=== PATIENT | male | born 1970 | race Caucasian/White ===

== ENCOUNTER 2017-01-09 02:30 | Inpatient (IN) | payer OTHER ==
[2017-01-09 02:35] VITALS: BP 145/80; PULSE 90; RESP 16; TEMP 97.9; O2SAT 97
[2017-01-09] MEDS ORDERED: SODIUM CHLOR 0.9% 1000 ML INJ 1,000 ML IV ONE (02:45)
--- NOTE | 2017-01-09 02:51 | PD ---
HPI Chief Complaint: psychiatric evaluation Time Seen by Provider: 02:47 Travel History International Travel<30 days: No Contact w/Intl Traveler<30days: No History of Present Illness HPI Patient comes in by EMS complaining of suicidal thoughts. Patient states he was tried to kill himself for a long time ago. Patient reports he is been smoking weed that he he believes may have been laced with unknown substance. Patient denies any chest pain, shortness of breath, fevers, nausea, vomiting, or headache. Per EMS patient states he is also smoking crack the past several days as well. Patient's thoughts and speech are all over the place thus limiting H&P. PFSH Past Medical History Asthma: Yes Depression: Yes Cardiovascular Problems: Yes Chest Pain: Yes Endocrine: No Genitourinary: Yes Headaches: Yes Musculoskeletal: Yes Neurologic: Yes Psychiatric: Yes Reproductive: No Respiratory: Yes Social History Tobacco Use: Yes (TWO PACKS A DAY) Substance Use: Yes (POT WHEN HE CAN GET IT) Allergies-Medications (Allergen,Severity, Reaction): Coded Allergies: No Known Allergies (Verified , 01/09/17) Reported Meds & Prescriptions Reported Meds & Active Scripts Active Reported Invega Sustenna Inj (Paliperidone Palmitate) 234 Mg/1.5 Ml Inj 234 Mg IM MONTHLY Review of Systems Except as stated in HPI: all other systems reviewed are Neg Physical Exam Narrative GENERAL: Well-developed, well nourished, in no acute distress, and non-ill appearing. SKIN: Warm and dry. HEAD: Atraumatic. Normocephalic. EYES: Pupils equal and round. EOMI. No scleral icterus. No injection or drainage. ENT: No nasal bleeding or discharge. Mucous membranes pink and moist. NECK: Trachea midline. Supple. No nuclear rigidity. CARDIOVASCULAR: Regular rate and rhythm. No murmur appreciated. RESPIRATORY: No accessory muscle use. No respiratory distress. Clear to auscultation. Breath sounds equal bilaterally. MUSCULOSKELETAL: No obvious deformities. No clubbing. No cyanosis. No edema. Full range of motion. NEUROLOGICAL: Awake and alert. No obvious cranial nerve deficits. Motor grossly within normal limits. Rambling speech. PSYCHIATRIC: Flight of ideas. Data Data Last Documented VS Vital Signs Date Time Temp Pulse Resp B/P Pulse Ox O2 Delivery O2 Flow Rate FiO2 01/09/17 02:35 97.9 90 16 145/80 97 Orders Complete Blood Count With Diff (01/09/17 02:35) Comprehensive Metabolic Panel (01/09/17 02:35) Psych Screen (01/09/17 02:35) Drug Screen, Random Urine (01/09/17 02:35) Alcohol (Ethanol) (01/09/17 02:35) Salicylates (Aspirin) (01/09/17 02:35) Tylenol (Acetaminophen) (01/09/17 02:35) Iv Access Insert/Monitor (01/09/17 02:43) Sodium Chlor 0.9% 1000 Ml Inj (Ns 1000 M (01/09/17 02:45) Labs Laboratory Tests Test 01/09/17 01/09/17 02:45 03:00 White Blood Count 7.8 TH/MM3 Red Blood Count 4.85 MIL/MM3 Hemoglobin 15.4 GM/DL Hematocrit 45.5 % Mean Corpuscular Volume 93.9 FL Mean Corpuscular Hemoglobin 31.8 PG Mean Corpuscular Hemoglobin 33.9 % Concent Red Cell Distribution Width 13.7 % Platelet Count 163 TH/MM3 Mean Platelet Volume 9.2 FL Neutrophils (%) (Auto) 67.6 % Lymphocytes (%) (Auto) 21.3 % Monocytes (%) (Auto) 8.1 % Eosinophils (%) (Auto) 2.0 % Basophils (%) (Auto) 1.0 % Neutrophils # (Auto) 5.3 TH/MM3 Lymphocytes # (Auto) 1.7 TH/MM3 Monocytes # (Auto) 0.6 TH/MM3 Eosinophils # (Auto) 0.2 TH/MM3 Basophils # (Auto) 0.1 TH/MM3 CBC Comment DIFF FINAL Differential Comment Sodium Level 139 MEQ/L Potassium Level 4.3 MEQ/L Chloride Level 102 MEQ/L Carbon Dioxide Level 28.0 MEQ/L Anion Gap 9 MEQ/L Blood Urea Nitrogen 10 MG/DL Creatinine 1.13 MG/DL Estimat Glomerular Filtration 70 ML/MIN Rate Random Glucose 92 MG/DL Calcium Level 9.3 MG/DL Total Bilirubin 0.8 MG/DL Aspartate Amino Transf 22 U/L (AST/SGOT) Alanine Aminotransferase 30 U/L (ALT/SGPT) Alkaline Phosphatase 81 U/L Total Protein 7.8 GM/DL Albumin 4.4 GM/DL Salicylates Level 4.4 MG/DL Acetaminophen Level LESS THAN 2.0 MCG/ML Ethyl Alcohol Level 5 MG/DL Urine Opiates Screen NEG Urine Barbiturates Screen NEG Urine Amphetamines Screen NEG Urine Benzodiazepines Screen NEG Urine Cocaine Screen NEG Urine Cannabinoids Screen POS MDM Medical Decision Making Medical Screen Exam Complete: Yes Emergency Medical Condition: Yes Differential Diagnosis Homicidal, suicidal, drug-induced psychosis, drug abuse, bipolar, schizoaffective, other Narrative Course Due to patient's suicidal ideations and reported previous suicide attempt. Patient was placed under Maloney act until patient can be evaluated by psych. Patient was seen and examined. Labs were obtained and reviewed. Patient medically cleared for further treatment and evaluation by psych. Final disposition per psych. Diagnosis Primary Impression: Suicidal thoughts Condition: Stable Alfredo Thao Jan 09, 2017 02:51
[2017-01-09 03:02] LABS: AUTOMATED NEUTROPHIL # 5.3 TH/MM3 (1.8-7.7); BASOPHIL # 0.1 TH/MM3 (0-0.2); EOSINOPHIL # 0.2 TH/MM3 (0-0.4); HEMATOCRIT 45.5 % (39.0-51.0); HEMO FLAGS DIFF FINAL; LYMPH % 21.3 % (9.0-44.0); LYMPHOCYTE # 1.7 TH/MM3 (1.0-4.8); MEAN CELL VOLUME 93.9 FL (80.0-100.0); MEAN CORPUSCULAR HEMOGLOBIN 31.8 PG (27.0-34.0); MEAN CORPUSCULAR HGB CONC 33.9 % (32.0-36.0); MONO % 8.1 % (0.0-8.0); NEUT % 67.6 % (16.0-70.0); PLATELET COUNT 163 TH/MM3 (150-450); RED BLOOD COUNT 4.85 MIL/MM3 (4.50-5.90); RED CELL DISTRIBUTION WIDTH 13.7 % (11.6-17.2); WHITE BLOOD COUNT 7.8 TH/MM3 (4.0-11.0)
[2017-01-09] MEDS ORDERED: PALI234P IM (03:08)
[2017-01-09 03:17] LABS: ALT (GPT) 30 U/L (12-78); ANION GAP 9 MEQ/L (5-15); AST (GOT) 22 U/L (15-37); BLOOD UREA NITROGEN 10 MG/DL (7-18); CHLORIDE 102 MEQ/L (98-107); GLOMERULAR FILTRATION RATE 70 ML/MIN (>89); POTASSIUM 4.3 MEQ/L (3.5-5.1); SODIUM (NA) 139 MEQ/L (136-145)
[2017-01-09 03:19] LABS: ALKALINE PHOSPHATASE 81 U/L (45-117); TOTAL BILIRUBIN ADULT 0.8 MG/DL (0.2-1.0)
[2017-01-09 03:19] LABS: AMPHETAMINE, URINE NEG (NEG); BARBITURATES, URINE NEG (NEG); COCAINE, URINE NEG (NEG)
[2017-01-09 03:20] LABS: ACETAMINOPHEN LESS THAN 2.0 MCG/ML (10.0-30.0)
[2017-01-09 06:28] VITALS: BP 170/65; PULSE 89; RESP 18; TEMP 97.3; O2SAT 96
--- NOTE | 2017-01-09 10:28 | PD ---
History of Present Illness Chief Complaint: Psychiatric Symptoms Time Seen by Provider: 10:15 Travel History International Travel<30 Days: No Contact w/Intl Traveler<30days: No Known affected area: No Legal Status Legal Status: Maloney Act Maloney Act Signed By: ROULA ALEX [id number] History of Present Illness: History of Present Illness Patient is a 46 year old male with history of schizoaffective disorder who presents to [facility] under a BA. As per the report the patient reported suicidal ideation. As per ED documentation he reported he is been smoking weed that he he believes may have been laced with unknown substance as well as also smoking crack the past several days. Patient is seen in J pod. Awake, alert and engaging. He is dressed in hospital attire and is disheveled with strong body odor. He is not oriented to time, knows it is December but not oriented to date. He rambles and required redirection. Unable to focus and answer questions as he gets easily distracted. He reports he came to the hospital because he was having trouble with his heart and anxiety and that he has not slept in 48 hours. He then goes on to tell me about his knee and his back. He denies that he is hearing voices at this time.Denies suicidal or homicidal ideation as well He further reports that he is afraid of staying in his apartment because there is also someone else in that apartment that is using crack. I called his [facility] briefcase sewer Sondra Gabriel who states he is being followed by [facility] and did receive an injection of Invega Sustenna yesterday. He was recently released from the FACT team and has been referred top outpatient treatment. He has been diagnosed with schizoaffective disorder. She also informs me that he did in fact tell her that he smoked crack last week which may be a contributing factor to current presentation. . PFSH Past Medical History Asthma: Yes Depression: Yes Cardiovascular Problems: Yes (MITRAL VALVE PROLAPSE) Chest Pain: Yes COPD: Yes Endocrine: No Genitourinary: Yes Headaches: Yes Musculoskeletal: Yes Neurologic: Yes Psychiatric: Yes Reproductive: No Respiratory: Yes Schizophrenia: Yes Tetanus Vaccination: Unknown Influenza Vaccination: No Past Surgical History Other Surgery: Yes (FACIAL SURGERY 1995) Psychiatric History Psychiatric History Hx Psychiatric Treatment: LAST [facility] VISIT 10/16/08 FOR DEPRESSIVE D/O NOS. HX OF SCHIZOPHRENIA AND DEPRESSION. Recently discharged from FACT team. History of Inpatient Treatment: Yes Guns or firearms in home: No Social History As per record he is a single male who lives alone. On disability Hx Alcohol Use: No Hx Tobacco Use: Yes (TWO PACKS A DAY) Hx Substance Use: Yes Substance Use Type: Alcohol, Crack, Marijuana, Other Hx of Substance Use Treatment: No Family Psychiatric History Unable to obtain at this time. Allergies-Medications (Allergen,Severity, Reaction): Coded Allergies: No Known Allergies (Verified , 01/09/17) Reported Meds & Prescriptions Reported Meds & Active Scripts Active Reported Invega Sustenna Inj (Paliperidone Palmitate) 234 Mg/1.5 Ml Inj 234 Mg IM MONTHLY Review of Systems ROS Limitations: Psychotic Exam Alert: Yes [place]: Person (ox4) Mood: Anxious Affect: Labile Speech: Clear, Flight of Ideas Eye Contact: Normal Memory Intact: Comment (not formally tetsted) Delusions: No Suicidal: Ideation (denmeis any) Homicidal: Ideation (denies any) Insight/Judgement Poor. Impaired. MDM Medical Decision Making Medical Record Reviewed: Yes Assessment/Plan 46 year old male with hx of schizoaffective disorder who is under a BA for reporting suicidal ideation. Patient at this time reports he has not slept in 48 hours and that he smoked marijuana and crack. At this time he presents with fpsychotic symptoms and is at risk of harm to self . He will be admitted for further observation, to maintain safety and to stabilize current symptoms. Orders Complete Blood Count With Diff (01/09/17 02:35) Comprehensive Metabolic Panel (01/09/17 02:35) Psych Screen (01/09/17 02:35) Drug Screen, Random Urine (01/09/17 02:35) Alcohol (Ethanol) (01/09/17 02:35) Salicylates (Aspirin) (01/09/17 02:35) Tylenol (Acetaminophen) (01/09/17 02:35) Iv Access Insert/Monitor (01/09/17 02:43) Sodium Chlor 0.9% 1000 Ml Inj (Ns 1000 M (01/09/17 02:45) Diet Regular Basic (01/09/17 Breakfast) Diet Regular Basic (01/09/17 Lunch) Results Vital Signs Date Time Temp Pulse Resp B/P Pulse Ox O2 Delivery O2 Flow Rate FiO2 01/09/17 06:28 97.3 89 18 170/65 96 Room Air 01/09/17 02:35 97.9 90 16 145/80 97 Laboratory Tests Test 01/09/17 01/09/17 02:45 03:00 White Blood Count 7.8 Red Blood Count 4.85 Hemoglobin 15.4 Hematocrit 45.5 Mean Corpuscular Volume 93.9 Mean Corpuscular Hemoglobin 31.8 Mean Corpuscular Hemoglobin 33.9 Concent Red Cell Distribution Width 13.7 Platelet Count 163 Mean Platelet Volume 9.2 Neutrophils (%) (Auto) 67.6 Lymphocytes (%) (Auto) 21.3 Monocytes (%) (Auto) 8.1 Eosinophils (%) (Auto) 2.0 Basophils (%) (Auto) 1.0 Neutrophils # (Auto) 5.3 Lymphocytes # (Auto) 1.7 Monocytes # (Auto) 0.6 Eosinophils # (Auto) 0.2 Basophils # (Auto) 0.1 CBC Comment DIFF FINAL Differential Comment Sodium Level 139 Potassium Level 4.3 Chloride Level 102 Carbon Dioxide Level 28.0 Anion Gap 9 Blood Urea Nitrogen 10 Creatinine 1.13 Estimat Glomerular Filtration 70 Rate Random Glucose 92 Calcium Level 9.3 Total Bilirubin 0.8 Aspartate Amino Transf 22 (AST/SGOT) Alanine Aminotransferase 30 (ALT/SGPT) Alkaline Phosphatase 81 Total Protein 7.8 Albumin 4.4 Salicylates Level 4.4 Acetaminophen Level LESS THAN 2.0 Ethyl Alcohol Level 5 Urine Opiates Screen NEG Urine Barbiturates Screen NEG Urine Amphetamines Screen NEG Urine Benzodiazepines Screen NEG Urine Cocaine Screen NEG Urine Cannabinoids Screen POS Diagnosis Primary Impression: Schizoaffective disorder Additional Impression: Substance or medication-induced psychotic disorder Ruled Out: Suicidal thoughts Admitting Information Admitting Physician Requests: Admit (Dr. Salamanca) Condition: Stable Problem Qualifiers Primary Impression: Schizoaffective disorder Qualified Code: F25.0 - Schizoaffective disorder, bipolar type Additional Impression: Yamileth Christopher Jan 09, 2017 10:28
[2017-01-09] MEDS ORDERED: ACETAMINOPHEN 325 MG TAB PO PRN (11:15)
[2017-01-09] MEDS ORDERED: MAGNESIUM HYDROXIDE SUSP 30 ML CUP PO PRN (11:15)
[2017-01-09] MEDS ORDERED: ALUMINUM/MAGNESIUM/SIMETH 30 ML CUP PO PRN (11:15)
[2017-01-09] MEDS: NICOTINE 21 MG/24 HR PATCH T-DERMAL SCH (12:40)
[2017-01-09] MEDS ORDERED: LORazepam 2 MG TAB PO ONE (13:15)
[2017-01-09 14:48] VITALS: BP 127/70; PULSE 78; RESP 18; TEMP 97.5; O2SAT 95
[2017-01-09 15:30] VITALS: BP_SYST 117; BP_SYST 125; BP_DIAS 58; BP_DIAS 61; PULSE 72; PULSE 92; RESP 19; TEMP 98.9; O2SAT 95
[2017-01-10 05:35] VITALS: BP 106/66; PULSE 93; RESP 18; TEMP 97.9; O2SAT 96
[2017-01-10 08:06] LABS: ANION GAP 6 MEQ/L (5-15); BICARBONATE 30.3 MEQ/L (21.0-32.0); BLOOD UREA NITROGEN 13 MG/DL (7-18); CHLORIDE 104 MEQ/L (98-107); GLOMERULAR FILTRATION RATE 76 ML/MIN (>89); HDL CHOLESTEROL 79.6 MG/DL (40.0-60.0); LDL CHOLESTEROL 48 MG/DL (0-99); POTASSIUM 4.1 MEQ/L (3.5-5.1); SODIUM (NA) 140 MEQ/L (136-145)
[2017-01-10] MEDS: NICOTINE 21 MG/24 HR PATCH T-DERMAL SCH (09:00)
[2017-01-10] MEDS: REMOVE OLD PATCH T-DERMAL SCH (09:00)
--- NOTE | 2017-01-10 12:56 | HHI.HP ---
Provisional Diagnosis Admission Date Jan 09, 2017 at 11:07 [place] I. Schizoaffective disorder, bipolar type, depressed Certification of Person's Competence To Provide Express and Informed Consent I have personally examined Trent Huerta , a person being served at [facility] on, Jan 10, 2017 12:48. Express and informed consent means consent voluntarily given in writing, by a competent person, after sufficient explanation and disclosure of the subject matter involved to enable the person to make a knowing and willful decision without any element of force, fraud, deceit, duress, or other form of constraint or coercion. This person is 18 years of age or older, is not now known to be incompetent to consent to treatment with a guardian advocate, and does not have a health care surrogate or proxy currently making medical treatment decisions. I have found this person to be one of the following: [x Competent to provide express and informed consent, as defined above, for voluntary admission to this facility and is competent to provide express and informed consent for treatment. He/she has the consistent capacity to make well reasoned, willful, and knowing decisions concerning his or her medical or mental health treatment. The person fully and consistently understands the purpose of the admission for examination/placement and is fully capable of personally exercising all rights [place] [] Incompetent to provide express and informed consent to voluntary admission, and this is incompetent to provide express and informed consent to treatment. The person must be transferred to involuntary status and a petition for a guardian advocate filed with the Circuit Court. [] Refusing to provide express and informed consent to voluntary admission but is competent to provide express and informed consent for treatment. The person must be discharged or transferred to involuntary status. Form shall be completed within 24 hours of a person's arrival at the receiving facility and filed in the clinical record of each person: 1. Admitted on a voluntary basis 2. Permitted to provide express and informed consent to his/her own treatment 3. Allowed to transfer from involuntary to voluntary status 4. Prior to permitting a person to consent to his or her own treatment after having been previously found incompetent to consent to treatment. History of Present Illness Capacity: Has Capacity HPI This is a 46-year-old male with a long history of psychotic illness, recently discharged by the fact team but continues to be treated by Daniel Rajan. He has been variously diagnosed with schizophrenia and bipolar disorder as well as schizoaffective disorder. The last diagnosis being the most recent. The patient reportedly came in under a Maloney act for reporting suicidal ideation. At this time he is not reporting suicidality but he does admit to smoking crack and marijuana laced with some unknown substance. This has exacerbated his underlying mental condition and he is both depressed as well as demonstrating looseness of associations. He is afraid to return to his home, where his roommate reportedly continues to smoke crack. The patient receives in Musa cyst and a as a monthly injection and has received this injection at the last scheduled appointment. However, his looseness of association is an indicator of his disorganized thinking and his current inability to care for himself. Review of Systems ROS Limitations: Clinical Condition Constitutional: COMPLAINS OF: Diaphoretic episodes Endocrine: COMPLAINS OF: Heat/cold intolerance Respiratory: COMPLAINS OF: Cough Cardiovascular: COMPLAINS OF: Chest pain Gastrointestinal: COMPLAINS OF: Abdominal pain Musculoskeletal: COMPLAINS OF: Joint pain Neurologic: COMPLAINS OF: Headache Psychiatric: COMPLAINS OF: Confusion Past Psych History Psychological trauma history Denies. Violence risk - others (6 mos) Minimal. Violence risk - self (6 mos) Moderate to severe. Patient vacillates between suicidal and not being suicidal but continues to demonstrate loose association and disorganized thinking. Substance Abuse History Drugs/Alcohol past 12 months Over the last several days has been using crack cocaine and marijuana. Past Family Social History Coded Allergies: No Known Allergies (Verified , 01/09/17) Reported Medications Paliperidone Palmitate Inj (Invega Sustenna Inj)234 Mg/1.5 Ml [id number] Mg IM MONTHLY #1 VIAL Ref 0 01/09/17 Current Medications Medications (Trade) Dose Ordered Sig/Glenys Route Start Time Stop Time Status Last Admin (Tylenol) 650 mg Q4H PRN PO 01/09/17 11:15 (Milk Of Magnesia Liq) 30 ml DAILY PRN PO 01/09/17 11:15 (Mag-Al Plus Susp Liq) 30 ml Q6H PRN PO 01/09/17 11:15 (Habitrol 21 Mg Patch.24 Hr) 1 patch DAILY T-DERMAL 01/09/17 12:30 01/10/17 09:00 Miscellaneous Information 1 DAILY T-DERMAL 01/10/17 09:00 Family History Patient does have a family history of schizophrenia. Social History Patient is unemployed and lives on Social Security disability income. Chronic history of mental illness. Not . Has no children. Recently discharged from the fact team. Continues to be followed by Daniel Rajan. Patient's Strengths (min. 2) Verbal and resilience. Physical Exam GENERAL: SKIN: Warm and dry. HEAD: Normocephalic. EYES: No scleral icterus. No injection or drainage. NECK: Supple, trachea midline. No JVD or lymphadenopathy. CARDIOVASCULAR: Regular rate and rhythm without murmurs, gallops, or rubs. RESPIRATORY: Breath sounds equal bilaterally. No accessory muscle use. GASTROINTESTINAL: Abdomen soft, non-tender, nondistended. MUSCULOSKELETAL: No cyanosis, or edema. BACK: Nontender without obvious deformity. No CVA tenderness. Vital Signs Vital Signs Date Time Temp Pulse Resp B/P Pulse Ox O2 Delivery O2 Flow Rate FiO2 01/10/17 05:35 97.9 93 18 106/66 96 01/09/17 06:28 Room Air Mental Status Examination Speech: Unremarkable Orientation: x3 Memory: Unremarkable Thought Process: Organized, Loose Association Thought Content: Bizarre thinking Hallucination Type: None Attention and Concentration: Easily Distracted Suicidal Ideation: Yes Previous Suicide Attempts: No Homicidal Ideation: No Previous Homicide Attempts: No Insight: Fair, Poor Judgement: Unrealistic Affect: Anxious Affect if Inappropriate: Blunt Mood: Appropriate Motor Activity: Normal gait Assessment & Plan Problem List: (1) Schizoaffective disorder ICD Code: F25.9 Assessment & Plan Estimated LOS: 5-7 days patient with a chronic history of schizoaffective disorder who has recently been smoking crack cocaine and marijuana laced with some unknown substance. Currently presents in a decompensated state including bizarre and paranoid thinking as well as loose associations. Unable to care for himself and describes suicidal thinking. This physician plans to observe and evaluate the patient over the next 24 hours. Possibly augment his current Invega Sustenna with oral antipsychotic medication. It is anticipated he will be in the hospital for several days and will certainly receive a toxicology screen. Problem Qualifiers (1) Schizoaffective disorder: Qualified Code: F25.0 - Schizoaffective disorder, bipolar type Julian Alcantar MD Jan 10, 2017 12:56
[2017-01-10 17:30] VITALS: BP 125/59; PULSE 76; RESP 19; TEMP 98; O2SAT 97
[2017-01-11 05:44] VITALS: BP 118/58; PULSE 61; RESP 16; TEMP 98.5
[2017-01-11] MEDS: REMOVE OLD PATCH T-DERMAL SCH (09:00)
[2017-01-11] MEDS: NICOTINE 21 MG/24 HR PATCH T-DERMAL SCH (09:00)
[2017-01-11 09:28] LABS: HEMOGLOBIN A1b 0.8 %; HEMOGLOBIN F 0.8 %; HEMOGLOBIN P3 3.5 %
--- NOTE | 2017-01-11 13:32 | HHI.PYPN ---
Subjective Remarks Pt seen and discussed with staff. Staff reports that yesterday pt was easily agitated and began yelling at therapist on unit. Today he has been calmer and less labile. He states that his mood is "all whoo-whoo" and he asks for benzodiazepines for sleep despite sleeping well last night. "I can tell you that I'm allergic or immune to everything for sleep except benzos". He admits to relapse and attributes some of mood symptoms to "coming down". Discussed expiration of BA and options and pt was agreeable to sign in voluntary. "I know I'm a mess." He denies SI/HI. Objective Alert: Yes [place]: Person, Place, Date, Situation Mood: Other (mildly euphoric) Affect: Labile Memory Intact: Comment (no impairments) Hallucinations: Other (none) Delusions: No Delusion Type: Other (none) Suicidal: Ideation (denies) Homicidal: Ideation (denies) Insight/Judgement poor Vitals/IOs Vital Signs Date Time Temp Pulse Resp B/P Pulse Ox O2 Delivery O2 Flow Rate FiO2 01/11/17 05:44 98.5 61 16 118/58 01/10/17 17:30 97 01/09/17 06:28 Room Air Assessment & Plan Problem List: (1) Schizoaffective disorder ICD Code: F25.9 Assessment & Plan Continue current tx plan. Pt seems to be clearing as substances clear system. Estimated LOS: days Justification for Cont. Inpt. impairments in social functioning, monitoring for safety Problem Qualifiers (1) Schizoaffective disorder: Qualified Code: F25.0 - Schizoaffective disorder, bipolar type Mary Solis MD Jan 11, 2017 13:32
[2017-01-11 17:14] VITALS: BP 115/72; PULSE 79; RESP 18; TEMP 97.7; O2SAT 100
[2017-01-12 05:57] VITALS: BP 118/65; PULSE 70; RESP 18; TEMP 98.3; O2SAT 96
[2017-01-12] MEDS: REMOVE OLD PATCH T-DERMAL SCH (09:00)
[2017-01-12] MEDS: NICOTINE 21 MG/24 HR PATCH T-DERMAL SCH (09:00)
--- NOTE | 2017-01-12 12:28 | HHI.DS ---
Psychiatry Discharge Summary Inpatient Psychiatric care?: Yes Advance Directive: No Reason Not Provided: Due to Patient Condition Mental Health AdvanceDirective: No Health Care Proxy: No Admission Admission Date Jan 09, 2017 at 11:07 Admission Diagnosis: (1) Schizoaffective disorder ICD Code: F25.9 Brief History This is a 46-year-old male with a long history of psychotic illness, recently discharged by the fact team but continues to be treated by Daniel Rajan. He has been variously diagnosed with schizophrenia and bipolar disorder as well as schizoaffective disorder. The last diagnosis being the most recent. The patient reportedly came in under a Maloney act for reporting suicidal ideation. At this time he is not reporting suicidality but he does admit to smoking crack and marijuana laced with some unknown substance. This has exacerbated his underlying mental condition and he is both depressed as well as demonstrating looseness of associations. He is afraid to return to his home, where his roommate reportedly continues to smoke crack. The patient receives in Huddler cyst and a as a monthly injection and has received this injection at the last scheduled appointment. However, his looseness of association is an indicator of his disorganized thinking and his current inability to care for himself. Tobacco Use In Past 30 Days: 5 or More Cigarettes/Day Alcohol Use: 2-3 Times Per Week Hospital Course Patient was admitted to a locked, inpatient psychiatric unit. Appropriate precautions were in place throughout patient's hospital stay. Patient was seen and examined daily on the unit by psychiatry and also visited by counselor. Patient had received Invega Sustenna just prior to admission, and no psychotropics were started during this hospital stay. Patient had no side effects from the Invega Sustenna. Patient had improvement in his presenting psychiatric symptomatology, which was likely exacerbated by recent substance use. He had resolution of his psychosis. There was no evidence of any suicidality or homicidality on the inpatient unit. On the day of discharge: Patient seen and examined. Chart reviewed. Case discussed in treatment team with nurse, counselor and occupational therapist. Per nursing staff, patient has been no behavioral problem. Per occupational therapist, patient has been appropriate in groups. On my examination today, the patient is calm and pleasant. He is requesting discharge from the inpatient psychiatric unit today. There is no evidence of ongoing psychosis, and the patient denies audiovisual hallucinations. I can elicit no delusional beliefs at this time. He denies any suicidal or homicidal ideation. Mood is stable and there are no depressive or hypomanic/manic symptoms. He does admit to use of methamphetamines, crack cocaine and cannabis prior to admission. He plans to resume 12 step meetings and get a new sponsor on discharge to manage his substance use. He is knowledgeable about his psychotropic medications and plans to remain adherent with these and follow-up with outpatient mental health providers as well. Denies side effects from medications. No physical complaints. He is attending to his basic needs. Weighing the acute, chronic, and protective factors and based on the available evidence, I audio visual arts director to a reasonable degree of medical certainty that the patient is at low imminent risk of harm to self or others from a mental illness as defined and Maloney act and his level of function is adequate for outpatient care. Consequently, the patient does not meet criteria for involuntary psychiatric hospitalization at this time. I have offered to retain the patient on the inpatient unit for additional observation, but he has declined. Given that the patient is requesting discharge from the inpatient psychiatric unit today and given that I have no basis to retain him involuntarily at this time, I will arrange for his discharge today with psychiatric follow-up as arranged by counselor. Patient is also to follow-up with primary care. I counseled the patient to abstain from substances of abuse. I also counseled the patient regarding warning signs for need to return to the psychiatric emergency room as part of general safety plan. Results Blood Pressure 118 / 65 Vital Signs Date Time Temp Pulse Resp B/P Pulse Ox O2 Delivery O2 Flow Rate FiO2 01/12/17 05:57 98.3 70 18 118/65 96 01/09/17 06:28 Room Air Laboratory Tests Test 01/10/17 07:26 Estimat Glomerular Filtration 76 ML/MIN (>89) Rate HDL Cholesterol 79.6 MG/DL (40.0-60.0) Laboratory Results Test 01/10/17 07:26 Hemoglobin A1c 5.3 % (4.3-6.0) Triglycerides Level 65 MG/DL (42-150) Cholesterol Level 141 MG/DL (120-200) LDL Cholesterol 48 MG/DL (0-99) HDL Cholesterol 79.6 MG/DL (40.0-60.0) Summary of Procedures None done Imaging None done Pending results at discharge: No Medications # of Antipsychotic meds at D/C: 1 Approp Antipsych med options 1 - Minimum of three failed multiple trials of monotherapy. 2 - Documented plan to taper to monotherapy due to previous use of multiple meds OR cross-taper in progress at D/C. 3 - Documentation of augmentation of Clozapine. 4 - Justification other than those listed in allowable values 1-3, document here : Discharge Discharge Date: Jan 12, 2017 Discharge Diagnosis: (1) Schizoaffective disorder Diagnosis: Principal (stable) ICD Code: F25.9 (2) Polysubstance abuse Diagnosis: Secondary (counseled to quit) ICD Code: F19.10 GAF on discharge is 55 Mental Status Exam at Disch Patient is casually dressed. He is well groomed. He is awake and alert and oriented 3. No evidence of delirium. No abnormal motor movements noted. Speech is within normal limits for rate, tone and volume. Language and fund of knowledge seem at least average. Mood is good and affect is full and reactive. Thought process linear. No loosening of associations. No evident delusions. Denies audiovisual hallucinations. Denies suicidal or homicidal ideation. Insight and judgment are fair. Pt Condition on Discharge: Stable Discharge Disposition: Discharge Home Discharge Instructions Diet Instructions: As Tolerated, No Restrictions Activities you can perform: Weight Bearing as Meaghan Scheduled Appointment: [facility] Appointment Date: Jan 16, 2017 Appointment Time: 7:30am Continued Medications: Paliperidone Palmitate Inj (Invega Sustenna Inj) 234 Mg/1.5 Ml Inj 234 MG IM MONTHLY Schizophrenia #1 Ref 0 VIAL Discharge Time > 30 minutes Discharge/Advance Care Plan Health Problems: (1) Schizoaffective disorder Goals to promote your health * To prevent worsening of your condition and complications * To maintain your health at the optimal level Directions to meet your goals Take your medications as prescribed Follow your dietary instruction Follow activity as directed Keep your appointments as scheduled Take your immunizations and boosters as scheduled If your symptoms worsen call your PCP, if no PCP go to Urgent Care Center or Emergency Room For 18/05 questions related to your inpatient stay or results of tests pending at discharge, please contact Dr. David Salamanca at Smoking is Dangerous to Your Health. Avoid second hand smoking Problem Qualifiers (1) Schizoaffective disorder: Qualified Code: F25.0 - Schizoaffective disorder, bipolar type David Salamanca MD Jan 12, 2017 12:28
== END 2017-01-12 14:30 | disposition home or self-care (01) | DRG 885 ==
LOC: NEPA 02:30 → NEDA 11:07 → H270 13:40
PROVIDERS: ADMIT Psychiatry & Neurology Psychiatry; ATTEND Psychiatry & Neurology Psychiatry
DX: F25.0 Schizoaffective disorder, bipolar type (principal); J44.9 Chronic obstructive pulmonary disease, unspecified; F17.210 Nicotine dependence, cigarettes, uncomplicated; F14.90 Cocaine use, unspecified, uncomplicated; J45.909 Unspecified asthma, uncomplicated; Z91.5 Personal history of self-harm; F12.90 Cannabis use, unspecified, uncomplicated; I34.1 Nonrheumatic mitral (valve) prolapse
CPT/HCPCS: 80048; 80053; 80061; 80307; 83036; 85025; 96360; J7030

== ENCOUNTER 2017-02-06 17:59 | Emergency (ER) | payer OTHER ==
[~2017-02-06] VITALS: Ht 190.5 cm; Wt 72.5 kg
[~2017-02-06 17:59] MED LIST: PALI234P IM
[2017-02-06 18:01] VITALS: BP 135/83; PULSE 86; RESP 20; TEMP 98.7; O2SAT 96
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
[2017-02-06 19:07] LABS: AUTOMATED NEUTROPHIL # 4.9 TH/MM3 (1.8-7.7); BASOPHIL # 0.1 TH/MM3 (0-0.2); BASOPHIL % 1.1 % (0.0-2.0); EOSINOPHIL # 0.2 TH/MM3 (0-0.4); EOSINOPHIL % 2.9 % (0.0-4.0); HEMATOCRIT 39.8 % (39.0-51.0); HEMO FLAGS DIFF FINAL; LYMPH % 21.7 % (9.0-44.0); LYMPHOCYTE # 1.6 TH/MM3 (1.0-4.8); MEAN CORPUSCULAR HEMOGLOBIN 32.6 PG (27.0-34.0); MEAN CORPUSCULAR HGB CONC 34.6 % (32.0-36.0); MONO % 7.9 % (0.0-8.0); NEUT % 66.4 % (16.0-70.0); PLATELET COUNT 147 TH/MM3 (150-450); RED BLOOD COUNT 4.23 MIL/MM3 (4.50-5.90); RED CELL DISTRIBUTION WIDTH 13.1 % (11.6-17.2); WHITE BLOOD COUNT 7.4 TH/MM3 (4.0-11.0)
[2017-02-06 19:19] LABS: ANION GAP 5 MEQ/L (5-15); AST (GOT) 33 U/L (15-37); BICARBONATE 31.3 MEQ/L (21.0-32.0); BLOOD UREA NITROGEN 7 MG/DL (7-18); CHLORIDE 103 MEQ/L (98-107); GLOMERULAR FILTRATION RATE 55 ML/MIN (>89); POTASSIUM 3.6 MEQ/L (3.5-5.1); SODIUM (NA) 139 MEQ/L (136-145)
[2017-02-06 19:22] LABS: ALKALINE PHOSPHATASE 70 U/L (45-117); ALT (GPT) 43 U/L (12-78); TOTAL BILIRUBIN ADULT 0.4 MG/DL (0.2-1.0)
[2017-02-06 19:24] LABS: APTT (PATIENT) 31.5 SEC (24.3-30.1); PROTHROMBIN TIME - PATIENT 10.9 SEC (9.8-11.6)
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
[2017-02-06] MEDS ORDERED: ACETAMINOPHEN 500 MG CPLT PO ONE (21:00)
[2017-02-06 21:03] LABS: BLOOD, URINE NEG (NEG); GLUCOSE,URINE NEG (NEG); KETONE, URINE NEG (NEG); NITRITE,URINE NEG (NEG); URINE COLOR YELLOW (YELLW/STRAW)
[2017-02-06 21:06] LABS: COMMENT (UR) CULT NOT INDICATED; CULTURE IF INDICATED CULT NOT INDICATED
[2017-02-06 21:27] LABS: AMPHETAMINE, URINE NEG (NEG); BARBITURATES, URINE NEG (NEG); COCAINE, URINE POS (NEG)
== END 2017-02-06 21:19 | disposition home or self-care (01) ==
LOC: NEPD 17:59
DX: S09.90XA Unspecified injury of head, initial encounter (principal); R51 Headache; F17.210 Nicotine dependence, cigarettes, uncomplicated; J45.909 Unspecified asthma, uncomplicated; J44.9 Chronic obstructive pulmonary disease, unspecified; Y00.XXXA Assault by blunt object, initial encounter; Y93.9 Activity, unspecified; Y92.9 Unspecified place or not applicable; Y99.8 Other external cause status
CPT/HCPCS: 70450; 80053; 80307; 81001; 85025; 85610; 85730

== ENCOUNTER 2017-02-06 21:52 | Emergency (ER) | payer OTHER ==
[~2017-02-06] VITALS: Ht 190.5 cm; Wt 77.0 kg
[2017-02-06 21:56] VITALS: BP 124/67; PULSE 78; RESP 16; TEMP 97.8; O2SAT 96
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
[2017-02-07 00:53] VITALS: BP 118/66; PULSE 74; RESP 16; O2SAT 97
[2017-02-07 03:42] LABS: AMPHETAMINE, URINE NEG (NEG); BARBITURATES, URINE NEG (NEG); COCAINE, URINE POS (NEG)
[2017-02-07 04:00] VITALS: BP 128/62; PULSE 68; RESP 16; O2SAT 95
[2017-02-07 08:10] VITALS: BP 132/64; PULSE 76; RESP 20; O2SAT 97
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
== END 2017-02-07 08:21 | disposition home or self-care (01) ==
LOC: NEPD 21:52
DX: F19.94 Other psychoactive substance use, unspecified with psychoactive substance-induced mood disorder (principal); F12.90 Cannabis use, unspecified, uncomplicated; F20.9 Schizophrenia, unspecified; J45.909 Unspecified asthma, uncomplicated; J44.9 Chronic obstructive pulmonary disease, unspecified; F17.210 Nicotine dependence, cigarettes, uncomplicated
CPT/HCPCS: 80307; 99284

== ENCOUNTER 2017-02-11 21:42 | Emergency (ER) | payer OTHER ==
[~2017-02-11] VITALS: Ht 190.5 cm; Wt 80.0 kg
[2017-02-11 21:44] VITALS: BP 130/84; PULSE 80; RESP 15; TEMP 98.5; O2SAT 97
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
[2017-02-12] MEDS ORDERED: GABA300C5 PO (04:05)
== END 2017-02-11 22:58 | disposition home or self-care (01) ==
LOC: NEPD 21:42
DX: R45.850 Homicidal ideations (principal); F20.9 Schizophrenia, unspecified; F43.10 Post-traumatic stress disorder, unspecified; F17.210 Nicotine dependence, cigarettes, uncomplicated; F12.90 Cannabis use, unspecified, uncomplicated; F14.90 Cocaine use, unspecified, uncomplicated; Z59.0 Homelessness
CPT/HCPCS: 99283

== ENCOUNTER 2017-02-12 03:34 | Emergency (ER) | payer OTHER ==
[~2017-02-12] VITALS: Ht 190.5 cm; Wt 78.0 kg
[2017-02-12 03:37] VITALS: BP 153/95; PULSE 112; RESP 16; TEMP 97.9; O2SAT 98
[2017-02-12] MEDS ORDERED: GABA300C5 PO (04:05)
--- NOTE | 2017-02-12 04:09 | PD ---
HPI Chief Complaint: Pain: Acute or Chronic Time Seen by Provider: 04:00 Travel History International Travel<30 days: No Contact w/Intl Traveler<30days: No Traveled to known affect area: No History of Present Illness HPI This is a 46-year-old male who carries the diagnosis of schizoaffective disorder , PTSD. He presents for evaluation of bilateral foot pain. He reports a long- time history of peripheral neuropathy in his feet. He reports that in the past he has been prescribed gabapentin however he ran out 2 weeks ago and requests a medication refill today. He reports a burning/prickling sensation on the plantar aspect of both feet which is constant, aggravated by walking, no relieving factors. He reports that he has been walking a lot more lately. He is currently homeless and estimates that he walks 20-50 miles day. He denies any injuries. He has no other complaints at this time. Per chart review the patient was just seen here less than 8 hours ago for evaluation of homelessness. PFS Past Medical History Asthma: Yes Depression: Yes Cancer: No Cardiovascular Problems: No Chest Pain: Yes COPD: Yes Diabetes: No Endocrine: No Genitourinary: Yes Headaches: No Musculoskeletal: Yes Neurologic: Yes Psychiatric: Yes (schizoaffective disorder with PTSD) Reproductive: No Respiratory: Yes Schizophrenia: Yes Seizures: No Past Surgical History Other Surgery: Yes (FACIAL SURGERY 1995) Social History Alcohol Use: Yes (STATES QUIT) Tobacco Use: Yes (TWO PACKS A DAY) Substance Use: Yes (COKE, POT) Allergies-Medications (Allergen,Severity, Reaction): Coded Allergies: No Known Allergies (Verified , 02/12/17) Reported Meds & Prescriptions Reported Meds & Active Scripts Active Gabapentin 300 Mg Cap 300 Mg PO TID 14 Days Reported Invega Sustenna Inj (Paliperidone Palmitate) 234 Mg/1.5 Ml Inj 234 Mg IM MONTHLY Review of Systems Except as stated in HPI: all other systems reviewed are Neg Physical Exam Narrative GENERAL: This is a disheveled appearing male who is sleeping however he is easily arousable and provides history when prompted. SKIN: Warm and dry. No open wounds. HEAD: Atraumatic. Normocephalic. EYES: Pupils equal and round. No scleral icterus. No injection or drainage. ENT: No nasal bleeding or discharge. Mucous membranes pink and moist. NECK: Trachea midline. No JVD. CARDIOVASCULAR: Regular rate and rhythm. No murmur appreciated. RESPIRATORY: No accessory muscle use. Clear to auscultation. Breath sounds equal bilaterally. MUSCULOSKELETAL: No obvious deformities. There is generalized tenderness to palpation to the plantar aspect of both feet. There is no point bony tenderness to palpation. The patient maintains full range of motion of the lower extremities. The calves and thighs are nontender. 2+ dorsalis pedis and posterior tibial pulses bilaterally. NEUROLOGICAL: Awake and alert. No obvious cranial nerve deficits. Motor grossly within normal limits. Normal speech. PSYCHIATRIC: Appropriate mood and affect; insight and judgment normal. Data Data Last Documented VS Vital Signs Date Time Temp Pulse Resp B/P Pulse Ox O2 Delivery O2 Flow Rate FiO2 02/12/17 03:37 97.9 112 16 153/95 98 Room Air Orders Gabapentin (Neurontin) (02/12/17 04:15) [facility] Medical Decision Making Medical Screen Exam Complete: Yes Emergency Medical Condition: Yes Medical Record Reviewed: Yes Differential Diagnosis Peripheral neuropathy, medication refill, bilateral stress fractures, intermittent claudication, DVT, blisters, calluses, ulcerations Narrative Course This is a 46-year-old homeless individual who has been walking several miles a day. He reports a history of peripheral neuropathy in his feet for which she is typically prescribed gabapentin. He ran out 2 weeks ago and is requesting a refill. He describes a burning/prickling sensation on the plantar aspect of both feet which is reproduced with walking. Examination reveals no evidence of more acute pathology. The patient will be given a 14 day supply of gabapentin 300 mg TID. He is stable for discharge. Diagnosis Primary Impression: Medication refill Additional Instructions: Follow-up with a primary care physician as needed. Return for any emergent medical condition. Med/Other Pt SpecificInfo: Prescription(s) given Scripts Gabapentin 300 Mg [id number] Mg PO TID 14 Days Ref 0 Prov:Riki Austin MD 02/12/17 Disposition: 01 DISCHARGE HOME Condition: Stable Azar Dallas Feb 12, 2017 04:09
[2017-02-12] MEDS ORDERED: GABAPENTIN 300 MG CAP PO ONE (04:15)
== END 2017-02-12 04:37 | disposition home or self-care (01) ==
LOC: NEPK 03:34
DX: G62.9 Polyneuropathy, unspecified (principal); Z76.0 Encounter for issue of repeat prescription; J44.9 Chronic obstructive pulmonary disease, unspecified; F43.10 Post-traumatic stress disorder, unspecified; Z59.0 Homelessness; F17.210 Nicotine dependence, cigarettes, uncomplicated
CPT/HCPCS: 99283

== ENCOUNTER 2017-03-10 17:33 | Emergency (ER) | payer OTHER ==
[~2017-03-10] VITALS: Ht 190.5 cm; Wt 68.0 kg
[~2017-03-10 17:33] MED LIST changes: +GABA300C5 PO
[2017-03-10 17:45] VITALS: BP 144/97; PULSE 85; RESP 16; TEMP 98.6; O2SAT 97
--- NOTE | 2017-03-10 17:46 | PD ---
Physical Exam Time Seen by Provider: 17:45 Narrative 46 y/o male presents requesting psychiatric evaluation of flashbacks, depression. Seen at triage desk. Awaiting bed placement. [facility] Medical Record Reviewed: Yes Supervised Visit with CJ: Azar Machado March 10, 2017 17:46
== END 2017-03-10 18:52 | disposition left against medical advice (07) ==
LOC: NEDAMB 17:33
DX: F16.283 Hallucinogen dependence with hallucinogen persisting perception disorder (flashbacks) (principal)
CPT/HCPCS: 99281; 99282

== ENCOUNTER 2017-03-10 21:15 | Emergency (ER) | payer OTHER ==
[~2017-03-10] VITALS: Ht 175.3 cm; Wt 82.0 kg
[2017-03-10 21:23] VITALS: BP 115/77; PULSE 93; RESP 18; TEMP 98.3; O2SAT 96
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
[2017-03-10 23:08] LABS: AUTOMATED NEUTROPHIL # 6.7 TH/MM3 (1.8-7.7); BASOPHIL % 0.5 % (0.0-2.0); EOSINOPHIL # 0.3 TH/MM3 (0-0.4); EOSINOPHIL % 2.7 % (0.0-4.0); HEMATOCRIT 42.9 % (39.0-51.0); HEMO FLAGS DIFF FINAL; LYMPH % 20.1 % (9.0-44.0); MEAN CELL VOLUME 93.6 FL (80.0-100.0); MEAN CORPUSCULAR HEMOGLOBIN 31.7 PG (27.0-34.0); MEAN CORPUSCULAR HGB CONC 33.9 % (32.0-36.0); MONO % 8.1 % (0.0-8.0); NEUT % 68.6 % (16.0-70.0); PLATELET COUNT 183 TH/MM3 (150-450); RED BLOOD COUNT 4.59 MIL/MM3 (4.50-5.90); RED CELL DISTRIBUTION WIDTH 13.4 % (11.6-17.2); WHITE BLOOD COUNT 9.7 TH/MM3 (4.0-11.0)
[2017-03-10 23:21] LABS: ALT (GPT) 37 U/L (12-78); ANION GAP 5 MEQ/L (5-15); AST (GOT) 37 U/L (15-37); BICARBONATE 27.6 MEQ/L (21.0-32.0); BLOOD UREA NITROGEN 5 MG/DL (7-18); CHLORIDE 105 MEQ/L (98-107); GLOMERULAR FILTRATION RATE 103 ML/MIN (>89); POTASSIUM 4.1 MEQ/L (3.5-5.1); SODIUM (NA) 138 MEQ/L (136-145)
[2017-03-10 23:23] LABS: ALKALINE PHOSPHATASE 75 U/L (45-117); TOTAL BILIRUBIN ADULT 0.3 MG/DL (0.2-1.0)
[2017-03-11 03:06] VITALS: BP 112/78; PULSE 88; RESP 20; TEMP 98.8; O2SAT 98
[2017-03-11 06:15] VITALS: BP 129/72; PULSE 70; RESP 16; O2SAT 97
== END 2017-03-11 10:03 | disposition left against medical advice (07) ==
LOC: NEPE 21:15
DX: F25.9 Schizoaffective disorder, unspecified (principal); J45.909 Unspecified asthma, uncomplicated; J44.9 Chronic obstructive pulmonary disease, unspecified; F17.210 Nicotine dependence, cigarettes, uncomplicated; Z59.0 Homelessness
CPT/HCPCS: 80053; 80307; 85025; 99283